=== PATIENT | female | born 1935 | race Two or more races ===

== ENCOUNTER 2018-04-27 19:48 | Emergency (ER) | payer OTHER ==
[~2018-04-27] VITALS: Ht 160 cm; Wt 99.8 kg
--- NOTE | 2018-04-27 19:50 | NUR ---
TO BED 10 BIB EMS FROM HOME C/O PER EMS "WEAKNESS AND FEVER X 2 DAYS". PT AAOX4 NO ACUTE DISTRESS NOTED, RESP EVEN AND UNLABORED. PLACE PT ON CARDIAC MONITORING, CONTINUOUS POX, O2@2L/NC. PT DAUGHTER AT BEDSIDE. PENDING ER MD RAMIRES.
[2018-04-27] MEDS ORDERED: IV NS 0.9% 1,000 ML BAG IV ONE ×2 (20:30→21:30)
[2018-04-27] MEDS ORDERED: ONDANSETRON HCL/PF 4 MG/2 ML VIAL IVP ONE (20:30)
[2018-04-27] MEDS ORDERED: ACETAMINOPHEN ES 500 MG TABLET ONE (20:32)
[2018-04-27] MEDS ORDERED: ONDANSETRON HCL/PF 4 MG/2 ML VIAL ONE (20:32)
--- NOTE | 2018-04-27 20:41 | NUR ---
TYLENOL 1000MG PO GIVEN PER ER MD ORDER.
--- NOTE | 2018-04-27 20:46 | NUR ---
PT TRANSPORTED TO RADIOLOGY FOR CT ABD/PELVIS.
[2018-04-27] MEDS ORDERED: ACETAMINOPHEN ES 500 MG TABLET PO ONE (21:00)
--- NOTE | 2018-04-27 21:01 | NUR ---
PT BACK FROM RADIOLOGY. PENDING CT ABD/PELVIS RESULT.
[2018-04-27 21:05] LABS: INR 2.64 (0.85-1.15)
[2018-04-27 21:24] LABS: ALANINE AMINOTRANSFERASE 16 U/L (12-78); ALBUMIN 2.8 g/dL (3.4-5.0); ALKALINE PHOSPHATASE 97 U/L (46-116); ASPARTATE AMINOTRANSFERASE 27 U/L (15-37); B-TYPE NATRIURETIC PEPTIDE 4989 PG/ML (0-125); BILIRUBIN,DIRECT 0.4 mg/dL (0.0-0.2); BILIRUBIN,TOTAL 1.3 mg/dL (0.2-1.0); CALCIUM, SERUM 8.4 mg/dL (8.5-10.1); CARBON DIOXIDE 29 mmol/L (21-32); CHLORIDE 102 mmol/L (98-107); CREATININE 1.1 mg/dL (0.6-1.3); GLUCOSE 144 mg/dL (74-106); POTASSIUM 3.9 mmol/L (3.5-5.1); SODIUM SERUM 136 mmol/L (136-145); TOTAL PROTEIN, SERUM 6.4 g/dL (6.4-8.2); UREA NITROGEN, BLOOD 27 mg/dL (7-18)
[2018-04-27] MEDS ORDERED: PIPERACILLIN /TAZOBACTAM 3.375 G in IV D5W 50 ML IV ONE (21:30)
[2018-04-27] MEDS ORDERED: PIPERACILLIN /TAZOBACTAM 3.375 G VIAL IV ONE (21:33)
[2018-04-27 21:37] LABS: APPEARANCE,URINE Clear (CLEAR); BILIRUBIN,URINE Negative (NEGATIVE); BLOOD, URINE Negative Ery/uL (NEGATIVE); COLOR,URINE Yellow (YELLOW); KETONES,URINE Negative (NEGATIVE); LEUKOCYTE ESTERASE ,URINE Negative (NEGATIVE); NITRITE, URINE Negative (NEGATIVE); PROTEIN,URINE Negative (NEGATIVE); UGLUCOSE Negative (NEGATIVE); UROBILINOGEN,URINE 0.2 EU/dL (0.2)
[2018-04-27 21:41] LABS: LYMPHOCYTES # (AUTO) 0.4 /CMM (0.8-4.8); LYMPHOCYTES % (AUTO) 4.5 % (20.0-44.0); MEAN CORPUSCULAR HEMOGLOBIN 27 PG (26.0-33.0); MEAN CORPUSCULAR HGB CONC 31 g/dl (31.0-36.0); MEAN CORPUSCULAR VOLUME 87 fL (82-100); MONOCYTES % (AUTO) 10.1 % (2.0-12.0); NEUTROPHILS # (AUTO) 8.3 /CMM (1.8-8.9); NEUTROPHILS % (AUTO) 85.4 % (43.0-81.0); PLATELET COUNT (AUTO) 170 /CMM (150-450); WHITE BLOOD COUNT (AUTO) 9.8 K/uL (4.3-11.0)
--- NOTE | 2018-04-27 21:50 | NUR ---
[facility], EXPECTING A CALL BACK FROM A JASPER
[2018-04-27 21:53] LABS: HEMOGLOBIN 4.2 g/dL (11.5-14.8); RED BLOOD CELL COUNT(AUTO) 1.55 MIL/uL (4.0-5.2)
[2018-04-27 21:54] LABS: HEMATOCRIT 14 % (33-45)
--- NOTE | 2018-04-27 21:54 | NUR ---
PT RESTING QUIETLY, NO ACUTE DISTRESS NOTED, RESP EVEN AND UNLABORED. PT DAUGHTER REMAINS AT BEDSIDE. AWAITING LAB RESULTS.
[2018-04-27 22:08] LABS: BAND % (MANUAL) 14 % (0.0-5.0); LYMPHOCYTES % (MANUAL) 8 % (16-48); MONOCYTES % (MANUAL) 10 % (0-11.0); NEUTROPHILS % (MANUAL) 68 (42-76)
[2018-04-27] MEDS ORDERED: FUROSEMIDE 20 MG/2 ML VIAL IV ONE (23:00)
--- NOTE | 2018-04-27 23:00 | NUR ---
LASIX 20MG IV CANCELLED PER ER MD ORDER DUE TO PT BP 92/51, HR-86.
[2018-04-27 23:17] LABS: LYMPHOCYTES # (AUTO) 0.5 /CMM (0.8-4.8); LYMPHOCYTES % (AUTO) 5.7 % (20.0-44.0); MEAN CORPUSCULAR HEMOGLOBIN 26 PG (26.0-33.0); MEAN CORPUSCULAR HGB CONC 30 g/dl (31.0-36.0); MEAN CORPUSCULAR VOLUME 88 fL (82-100); MONOCYTES # (AUTO) 0.8 /CMM (0.1-1.30); MONOCYTES % (AUTO) 9.1 % (2.0-12.0); NEUTROPHILS # (AUTO) 7.8 /CMM (1.8-8.9); NEUTROPHILS % (AUTO) 85.2 % (43.0-81.0); PLATELET COUNT (AUTO) 158 /CMM (150-450); RDW COEFFICIENT OF VARIATION 18.3 (11.5-15.0); WHITE BLOOD COUNT (AUTO) 9.1 K/uL (4.3-11.0)
[2018-04-27 23:38] LABS: RED BLOOD CELL COUNT(AUTO) 1.52 MIL/uL (4.0-5.2)
[2018-04-27 23:45] LABS: HEMATOCRIT 13 % (33-45)
[2018-04-27 23:53] LABS: OCCULT BLOOD STOOL POSITIVE (NEGATIVE)
--- NOTE | 2018-04-28 00:42 | NUR ---
LAY[facility] CALL[facility] WITH [facility]SFER INFO. PT GOING TO [facility]. NUMBER FOR REPORT [phone]. DR BROCK ACCEPTING MD. [facility] TRANSPORT ETA 0130. SEND LABS/IMAGES
--- NOTE | 2018-04-28 00:55 | NUR ---
BLOOD TRANSFUSION STARTED ON THE R HAND 18G, WILL MONITOR PT FOR TRANSFUSION REACTION.
--- NOTE | 2018-04-28 00:55 | NUR ---
BLOOD CONSENT SIGNED BY PT DAUGHTER.
[2018-04-28] MEDS ORDERED: IV NS 0.9% 1,000 ML BAG IV ONE (01:00)
[2018-04-28 01:18] LABS: LYMPHOCYTES % (MANUAL) 7 % (16-48); NEUTROPHILS % (MANUAL) 86 (42-76)
[2018-04-28 01:19] LABS: MONOCYTES % (MANUAL) 7 % (0-11.0)
--- NOTE | 2018-04-28 02:23 | NUR ---
BLOOD TRANSFUSION DONE, NO TRANSFUSION REACTION NOTED. PT TOLERATED BLOOD TRANSFUSION WELL.
--- NOTE | 2018-04-28 02:32 | NUR ---
CHRYSTAL ANDREWS TALKING TO GEOVANNA RUSS MD.
--- NOTE | 2018-04-28 02:48 | NUR ---
[facility] CALLED FOR NEW ETA OF [id number]
[2018-04-28 03:07] VITALS: BP 110/54
--- NOTE | 2018-04-28 03:08 | NUR ---
GEOVANNA TRANSPORT AT BEDSIDE REPORT GIVEN TO [facility]
--- NOTE | 2018-04-28 03:20 | NUR ---
REPORT CALLED TO GEOVANNA GARDINER.
== END 2018-04-28 03:40 ==
LOC: ER 19:49
DX: D64.9 Anemia, unspecified (principal); I11.0 Hypertensive heart disease with heart failure; I50.9 Heart failure, unspecified; E11.9 Type 2 diabetes mellitus without complications; R11.2 Nausea with vomiting, unspecified; M19.90 Unspecified osteoarthritis, unspecified site; Z90.710 Acquired absence of both cervix and uterus; Z96.642 Presence of left artificial hip joint; Z88.6 Allergy status to analgesic agent
CPT/HCPCS: 36415; 36430; 71045; 74176; 80048; 80076; 81001; 82272; 83605 ×2; 83880; 84484; 85025 ×2; 85730; 86850; 86921; 87040 ×2; 87086; 93005; 96361; 96365; 96366; 96375; 99291; A4606; J2405; J2543 ×2; J7030 ×2; J7050; J7060; 81000-TC; P9016-BL; Z7610